=== PATIENT | male | born 1990 | race Caucasian/White ===

== ENCOUNTER 2018-02-07 00:02 | Emergency (ER) | payer BC ==
[~2018-02-07] VITALS: Ht 188 cm; Wt 161.0 kg
[2018-02-07] MEDS ORDERED: COLCHICINE 0.6 MG TABLET ONE (02:29)
[2018-02-07] MEDS ORDERED: COLCHICINE 0.6 MG TABLET PO SCH (02:30)
[2018-02-07 02:37] VITALS: BP 131/86
== END 2018-02-07 02:43 | disposition home or self-care (01) ==
LOC: ED 00:50
DX: M10.9 Gout, unspecified (principal); I10 Essential (primary) hypertension; F90.9 Attention-deficit hyperactivity disorder, unspecified type
CPT/HCPCS: 99284